=== PATIENT | female | born 1965 | race Caucasian/White ===

== ENCOUNTER → 2016-06-10 | Outpatient (CLI) | payer OTHER ==
[~2016-06-10] MED LIST: ADVIN50/60 INH; ALBU0.5N2 NEB; AMT50 PO; ASPI81TA28 PO; CALC500C3 PO; CALCIUM CITRATE PO; CHOL100010 PO; CYAN100020 PO; CYM/30 PO; CYMBALTA PO; FAMO40TA6 PO; MISC4CAP PO; MONT1TAB3 PO; POLY335019 PO; PRED-301 PO; PSYL0.524 PO; TRAM-10 PO
--- NOTE | 2016-06-13 14:55 | MAMMOGRAPHY REPORT ---
BILATERAL DIGITAL SCREENING MAMMOGRAM TOMOSYNTHESIS WITH CAD: 06/10/2016 CLINICAL HISTORY: Routine screening. Patient has no complaints. TECHNIQUE: Breast tomosynthesis in addition to standard 2D mammography was performed. Current study was also evaluated with a Computer Aided Detection (CAD) system. COMPARISON: Comparison is made to exams dated: 04/29/2015 mammogram - [facility] and 11/14/2012 mammogram - [facility]. BREAST COMPOSITION: There are scattered areas of fibroglandular density in both breasts. FINDINGS: No suspicious masses, calcifications, or areas of architectural distortion are noted in e ither breast. There has been no significant interval change compared to prior exams. Multiple small round/oval circumscribed masses are seen bilaterally, best seen on the tomosynthesis images, which are considered benign given the multiplicity and bilaterality and may represent cysts and/or lymph n odes. IMPRESSION: ACR BI-RADS CATEGORY 2: BENIGN There is no mammographic evidence of malignancy. A 1 year screening mammogram is recommended. The p atient will receive written notification of the results. Approximately 10% of breast cancers are not detected with mammography. A negative mammographic repor t should not delay biopsy if a clinically suggestive mass is present. Nellie Christopher M.D. ah/:06/10/2016 16:33:46 Policy Intern: Lorrie ALBERT)(Shawn), [facility] letter sent: Normal 1/2 BI-RADS Code: ACR BI-RADS Category 2: Benign
== END | disposition home or self-care (01) ==
LOC: C.MAMM 13:31
PROVIDERS: ATTEND Obstetrics & Gynecology
DX: Z12.31 Encounter for screening mammogram for malignant neoplasm of breast (principal)

== ENCOUNTER → 2016-07-21 | Day surgery (SDC) | payer OTHER ==
[2016-07-05 11:00] VITALS: Ht 156.8 cm; Wt 77.3 kg
[~2016-07-21] VITALS: Ht 156.8 cm; Wt 77.3 kg
[~2016-07-21] MED LIST changes: -CYMBALTA PO; +LIDOCAINE HCL 1% MPF 5 ML VIAL ONE; +SODIUM CHLORIDE 0.9% INJ 10 ML VIAL ONE
--- NOTE | 2016-07-21 13:53 | History & Physical Bridge - SC ---
H&P Re-Evaluation Bridge Note: I have examined the patient, reviewed the History & Physical and in the interval since the performance of the History & Physical I have noted the following changes of clinical significance: No changes noted
[2016-07-21 14:18] VITALS: BP 114/73; PULSE 74; TEMP 36.9; O2SAT 94
--- NOTE | 2016-07-21 14:26 | Discharge Instructions ---
Discharge Instructions Visit Reason for Visit: Lumbar Radiculopathy Discharge Discharge Diagnosis / Problem: right leg pain Discharge Goals Goal(s): Decrease discomfort, Improve function Activity Recommendations Activity Limitations: resume your previous activity Anesthesia . Post Anesthesia Instructions: If you have had General Anesthesia or IV Sedation: * Do not drive today. * Resume driving when surgeon permits. * Do not make important decisions or sign legal documents today. * Call surgeon for: 1. Temperature elevations greater than 101 degrees F. 2. Uncontrollable pain. 3. Excessive bleeding. 4. Persistent nausea and vomiting. 5. Medication intolerance (nausea, vomiting or rash). * For nausea and vomiting use only clear liquids such as: tea, soda, bouillon until nausea subsides, then gradually increase diet as tolerated. * If you have any concerns or questions, call your surgeon's office. If physician is unavailable and it is an emergency, call 911 or go to the nearest emergency room. . Diet Recommendations Recommended Home Diet: resume previous diet Procedures Procedures Performed: Caudal Epidural Steroid Injection Pending Studies Studies pending at discharge: no Medical Emergencies . Who to Call and When: Medical Emergencies: If at any time you feel your situation is an emergency, please call 911 immediately. . Non-Emergent Contact Non-Emergency issues call your: Specialist . . "Provider Documentation" section prepared by Otilio Vega.
--- NOTE | 2016-07-21 14:38 | OPERATIVE REPORT ---
DATE OF OPERATION: 07/21/2016 PREOPERATIVE DIAGNOSIS: Right lower extremity radiculopathy, history of Barrera lucien placement. POSTOPERATIVE DIAGNOSIS: Same. PROCEDURE: Caudal epidural steroid injection under fluoroscopic guidance. SURGEON: Dr. Otilio Vega. INDICATIONS: The patient is a 51-year-old white female who has chronic radicular problems down the lower extremities. She has responded favorably to caudal epidural injection. She receives them every 4 months ago with good relief of her symptoms that last upwards of 3+ months. She presents today for caudal epidural injection as the last injection has worn off. PHYSICAL EXAMINATION: Pleasant female seated comfortably. She has no focal weakness of her lower extremities. Negative seated straight leg raises, intact sensation distally. CONSENT: Verbal and written consent was obtained from the patient. Risks and benefits were reviewed. Risks include but are not limited to epidural abscess, epidural hematoma, allergic reaction. The patient wishes to proceed. PROCEDURE: The patient was taken back into the [facility] procedure room where she was maintained in a prone position. Backside was cleansed with Betadine x3 and a dry sterile dressing was applied. Fluoroscope was used to identify the sacral hiatus and overlying skin was anesthetized with 5 mL of lidocaine 1% with a 25 gauge 1.5-inch needle. A 25 gauge 3.5 inch spinal needle was then directed under fluoroscopic guidance into the sacral hiatus and into the sacral canal. It was advanced up to the S2 level. She then underwent injection after negative aspiration of 40 mg of Depo-Medrol and 5 mL of preservative free sodium chloride. Injection was well tolerated. DISPOSITION: 1. The patient is taken out into the discharge recovery area where she will be discharged home once discharge criteria have been met. 2. Follow up in the [facility] office in 2-4 weeks. I attest to the content of the Intraoperative Record and any orders documented therein. Any exceptio ns are noted below.
== END | disposition home or self-care (01) ==
LOC: X.SURG 13:11
PROVIDERS: ATTEND Physical Medicine & Rehabilitation
DX: M54.16 Radiculopathy, lumbar region (principal); Z98.890 Other specified postprocedural states

== ENCOUNTER → 2016-08-05 | Outpatient (CLI) | payer OTHER ==
[~2016-08-05] MED LIST changes: -LIDOCAINE HCL 1% MPF 5 ML VIAL ONE; -SODIUM CHLORIDE 0.9% INJ 10 ML VIAL ONE
== END | disposition home or self-care (01) ==
LOC: C.LAB1850 14:28
PROVIDERS: ATTEND Obstetrics & Gynecology
DX: N89.8 Other specified noninflammatory disorders of vagina (principal); N95.1 Menopausal and female climacteric states

== ENCOUNTER → 2016-09-02 | Outpatient (CLI) | payer OTHER ==
[~2016-09-02] MED LIST changes: +VNTHFA/IN INH
--- NOTE | 2016-09-06 08:47 | CODING QUERY MEDICAL NECESSITY ---
SUPPORTING DIAGNOSIS NEEDED A supporting diagnosis is required for the test/procedure performed on this patient in order for us to be reimbursed by the patient's insurance. Please provide a supporting diagnosis for the following test/procedure listed below next to the test name along with your signature. *If there is no additional diagnosis for this patient that would support the following test/procedure please document that below next to the test/procedure. Test(s)/Procedure(s) that require a supporting diagnosis: * DXA BONE DENSITY DIAGNOSIS: * DOS: 09/02/16 Provider Signature: Date: Thank you Amelia Salazar Health Information Management Once completed, please kindly fax back to [phone] For questions please call [phone]
== END | disposition home or self-care (01) ==
LOC: C.MAMM 13:01
PROVIDERS: ATTEND Family Medicine
DX: Z13.820 Encounter for screening for osteoporosis (principal)

== ENCOUNTER → 2016-10-10 | Outpatient (CLI) | payer OTHER | END | disposition home or self-care (01) | LOC: C.RDSM 12:50 | PROVIDERS: ATTEND Physical Medicine & Rehabilitation Sports Medicine | DX: M25.561 Pain in right knee (principal); M25.562 Pain in left knee ==

== ENCOUNTER → 2016-11-17 | Day surgery (SDC) | payer OTHER ==
[2016-11-10 10:43] VITALS: Ht 156.8 cm; Wt 77.3 kg
[~2016-11-17] VITALS: Ht 156.8 cm; Wt 77.3 kg
[~2016-11-17] MED LIST changes: -CALCIUM CITRATE PO; +LIDOCAINE HCL 1% MPF 5 ML VIAL ONE; -PRED-301 PO; +SODIUM CHLORIDE 0.9% INJ 10 ML VIAL ONE; -TRAM-10 PO
[2016-11-17 12:19] VITALS: TEMP 36.9
[2016-11-17 13:30] VITALS: BP 114/75; PULSE 69; O2SAT 98
--- NOTE | 2016-11-17 13:33 | Discharge Instructions ---
Discharge Instructions Date of Service Nov 17, 2016. Visit Reason for Visit: Lumbar Radiculopathy Discharge Discharge Diagnosis / Problem: bilateral leg pain Discharge Goals Goal(s): Decrease discomfort, Improve function Activity Recommendations Activity Limitations: resume your previous activity Anesthesia . Post Anesthesia Instructions: If you have had General Anesthesia or IV Sedation: * Do not drive today. * Resume driving when surgeon permits. * Do not make important decisions or sign legal documents today. * Call surgeon for: 1. Temperature elevations greater than 101 degrees F. 2. Uncontrollable pain. 3. Excessive bleeding. 4. Persistent nausea and vomiting. 5. Medication intolerance (nausea, vomiting or rash). * For nausea and vomiting use only clear liquids such as: tea, soda, bouillon until nausea subsides, then gradually increase diet as tolerated. * If you have any concerns or questions, call your surgeon's office. If physician is unavailable and it is an emergency, call 911 or go to the nearest emergency room. . Diet Recommendations Recommended Home Diet: resume previous diet Procedures Procedures Performed: Caudal Epidural Steroid Injection Pending Studies Studies pending at discharge: no Medical Emergencies . Who to Call and When: Medical Emergencies: If at any time you feel your situation is an emergency, please call 911 immediately. . Non-Emergent Contact Non-Emergency issues call your: Specialist . . "Provider Documentation" section prepared by Otilio Vega. .
--- NOTE | 2016-11-17 13:59 | OPERATIVE REPORT ---
DATE OF OPERATION: 11/17/2016 PREOPERATIVE DIAGNOSES: History of Barrera lucien placement multilevel fusion with degenerative disc changes, stenosis and bilateral lower extremity radiculopathies. POSTOPERATIVE DIAGNOSES: Same. PROCEDURE: Caudal epidural steroid injection under fluoroscopic guidance. INDICATIONS: The patient is a 51-year-old white female who gets caudal epidural injections and they have been very helpful. Her last injection was in July. The pain has returned and is problematic to her. She presents today for an injection to provide her with relief of bilateral radicular leg pain. PHYSICAL EXAMINATION: Pleasant female seated comfortably. She has well-healed incisions along the backside. There is soreness to palpation of her lower lumbar spine with sensitivity to palpation of the buttocks area, which is worse with forward flexion. She has normal lower extremity strength. Negative seated straight leg raises. CONSENT: Verbal and written consent was obtained from the patient. Risks and benefits were reviewed. Risks include but are not limited to epidural abscess and allergic reaction. The patient wishes to proceed. PROCEDURE IN DETAIL: The patient was taken back to the special procedures room of the [facility], where she was maintained in a prone position. Backside was cleansed with Betadine x3 and a dry sterile drape was covered. Fluoroscope was used to identify the sacral hiatus and the overlying skin was anesthetized with 4 mL of lidocaine 1% with a 25 gauge 1.5-inch needle. A 25 gauge 3.5-inch spinal needle was then directed easily into the sacral canal and advanced under lateral fluoroscopic guidance. She then underwent injection after negative aspiration of 40 mg of Depo-Medrol and 5 mL of preservative free sodium chloride. Injection was well tolerated. DISPOSITION: 1. The patient is taken out into the discharge recovery area where she will be discharged home once discharge criteria have been met. 2. Follow up in the [facility] office in 4 weeks' time. I attest to the content of the Intraoperative Record and any orders documented therein. Any exception s are noted below.
== END | disposition home or self-care (01) ==
LOC: X.SURG 12:10
PROVIDERS: ATTEND Physical Medicine & Rehabilitation
DX: M48.07 Spinal stenosis, lumbosacral region (principal); M51.17 Intervertebral disc disorders with radiculopathy, lumbosacral region; Z98.1 Arthrodesis status

== ENCOUNTER → 2017-02-15 | Outpatient (CLI) | payer OTHER ==
[~2017-02-15] MED LIST changes: -LIDOCAINE HCL 1% MPF 5 ML VIAL ONE; -SODIUM CHLORIDE 0.9% INJ 10 ML VIAL ONE; -VNTHFA/IN INH
--- NOTE | 2017-02-15 14:13 | DIAGNOSTIC IMAGING REPORT ---
LEFT WRIST MIN 3 VIEWS ROUTINE CLINICAL HISTORY: LEFT WRIST PAIN COMPARISON: None. DISCUSSION: No acute fractures are visualized. No erosive changes are visualized. IMPRESSION: 1. No acute fractures 2. No evidence of erosive disease Electronically signed by: Vern Wodos M.D. 02/15/2017 2:11 PM Dictated Date/Time: 02/15/2017 2:11 PM
== END | disposition home or self-care (01) ==
LOC: C.RDSM 13:53
PROVIDERS: ATTEND Physician Assistant
DX: M25.532 Pain in left wrist (principal)

== ENCOUNTER → 2017-05-22 | Outpatient (CLI) | payer OTHER ==
[~2017-05-22] MED LIST changes: -ALBU0.5N2 NEB; +VNTHFA/IN INH
== END | disposition home or self-care (01) ==
LOC: C.RDSM 10:32
PROVIDERS: ATTEND Physical Medicine & Rehabilitation Sports Medicine
DX: M17.0 Bilateral primary osteoarthritis of knee (principal)

== ENCOUNTER → 2017-08-10 | Outpatient (CLI) | payer OTHER ==
--- NOTE | 2017-08-10 15:07 | MAMMOGRAPHY REPORT ---
BILATERAL DIGITAL SCREENING MAMMOGRAM TOMOSYNTHESIS WITH CAD: 08/10/2017 CLINICAL HISTORY: Routine screening. Patient has no complaints. TECHNIQUE: Breast tomosynthesis in addition to standard 2D mammography was performed. Current study was also evaluated with a Computer Aided Detection (CAD) system. COMPARISON: Comparison is made to exams dated: 06/10/2016 mammogram, 04/29/2015 mammogram - [facility], and 11/14/2012 mammogram - Replaced by [facility]. BREAST COMPOSITION: There are scattered areas of fibroglandular density in both breasts. FINDINGS: No suspicious masses, calcifications, or areas of architectural distortion are noted in ei ther breast. There has been no significant interval change compared to prior exams. A linear scar ma rker denotes a scar on the right anterior breast. IMPRESSION: ACR BI-RADS CATEGORY 2: BENIGN There is no mammographic evidence of malignancy. A 1 year screening mammogram is recommended. The pa tient will receive written notification of the results. Approximately 10% of breast cancers are not detected with mammography. A negative mammographic report should not delay biopsy if a clinically suggestive mass is present. Nellie Christopher M.D. /:08/10/2017 13:23:33 Education Spec: Dixie Glover, [facility] letter sent: Normal 1/2 BI-RADS Code: ACR BI-RADS Category 2: Benign
== END | disposition home or self-care (01) ==
LOC: C.MAMM 11:32
PROVIDERS: ATTEND Obstetrics & Gynecology
DX: Z12.31 Encounter for screening mammogram for malignant neoplasm of breast (principal)

== ENCOUNTER → 2017-10-05 | Day surgery (SDC) | payer OTHER ==
[2017-09-26 10:07] VITALS: Ht 156.2 cm; Wt 81.8 kg
[~2017-10-05] VITALS: Ht 156.2 cm; Wt 81.8 kg
[~2017-10-05] MED LIST changes: +ACET-1256 PO; -CHOL100010 PO; -CYM/30 PO; -FAMO40TA6 PO; +GABA100C13 PO; +LIDOCAINE HCL 1% MPF 5 ML VIAL ONE; +MULT-506 PO; +NABU750T PO; +PANT40TA PO; +SODIUM CHLORIDE 0.9% INJ 10 ML VIAL ONE
--- NOTE | 2017-10-05 13:44 | Discharge Instructions ---
Discharge Instructions Date of Service October 05, 2017. Visit Reason for Visit: Lumbar Radiculopathy Discharge Discharge Diagnosis / Problem: leg pain Discharge Goals Goal(s): Decrease discomfort, Improve function Activity Recommendations Activity Limitations: resume your previous activity Anesthesia . Post Anesthesia Instructions: If you have had General Anesthesia or IV Sedation: * Do not drive today. * Resume driving when surgeon permits. * Do not make important decisions or sign legal documents today. * Call surgeon for: 1. Temperature elevations greater than 101 degrees F. 2. Uncontrollable pain. 3. Excessive bleeding. 4. Persistent nausea and vomiting. 5. Medication intolerance (nausea, vomiting or rash). * For nausea and vomiting use only clear liquids such as: tea, soda, bouillon until nausea subsides, then gradually increase diet as tolerated. * If you have any concerns or questions, call your surgeon's office. If physician is unavailable and it is an emergency, call 911 or go to the nearest emergency room. . Diet Recommendations Recommended Home Diet: resume previous diet Procedures Procedures Performed: CADUAL EPIDURAL STEROID INJECTION Pending Studies Studies pending at discharge: no Medical Emergencies . Who to Call and When: Medical Emergencies: If at any time you feel your situation is an emergency, please call 911 immediately. . Non-Emergent Contact Non-Emergency issues call your: Specialist . . "Provider Documentation" section prepared by Otilio Vega. .
[2017-10-05 13:46] VITALS: TEMP 36.5
[2017-10-05 14:10] VITALS: BP 119/80; PULSE 68; O2SAT 97
--- NOTE | 2017-10-05 14:11 | [facility] Post Operative Brief Note ---
Immediate Operative Summary Operative Date October 05, 2017. Pre-Operative Diagnosis RADICULOPATHY OF THE LUMBAR REGION Post-Operative Diagnosis RADICULOPATHY OF THE LUMBAR REGION Procedure(s) Performed CADUAL EPIDURAL STEROID INJECTION Surgeon DR. Anila COLLINS Otolaryngology Nurse Surgeon(s) None Estimated Blood Loss NONE Findings Consistent with Post-Op Diagnosis Specimens NA Drains None Anesthesia Type Local Complication(s) none Disposition Disposition:
--- NOTE | 2017-10-05 14:23 | OPERATIVE REPORT ---
DATE OF OPERATION: 10/05/2017 PREOPERATIVE DIAGNOSES: 1. Lumbar disc disease L5-S1. 2. History of a Barrera lucien placement with right lower extremity radiculopathy. POSTOPERATIVE DIAGNOSES: 1. Lumbar disc disease L5-S1. 2. History of a Barrera lucien placement with right lower extremity radiculopathy. PROCEDURE: Caudal epidural steroid injection under fluoroscopic guidance. INDICATIONS: The patient is a 52-year-old white female who has received caudal epidural injections typically 3 times a year for the better part of the last 7+ years with great results in controlling pain for a period of about 3 months or more. She presents today for caudal epidural injection as she is having increasing pain down the leg. PHYSICAL EXAMINATION: GENERAL: Pleasant female, seated comfortably. MUSCULOSKELETAL: She has tenderness to palpation of the lower lumbar spine, well-healed incision in place and she has slight L4 dermatomal deficit in the left lower extremity compared to the right. CONSENT: Verbal and written consent was obtained from the patient. Risks and benefits were reviewed. Risks include but are not limited to epidural abscess and allergic reaction. Patient wishes to proceed. PROCEDURE: Patient was taken back to the special procedures room of the [facility] where she was maintained in a prone position. Backside was cleansed with Betadine x3 and a dry sterile dressing was applied. Fluoroscope was used to identify the sacral hiatus from the lateral view and the overlying skin was anesthetized with 4 mL of lidocaine 1% with 25 gauge 1.5-inch needle. A 25 gauge 3.5 inch spinal needle was then directed into the canal and advanced under lateral fluoroscopic guidance. She then underwent injection after negative aspiration of 40 mg of Depo-Medrol and 4 mL of preservative-free sodium chloride. Injection was well tolerated. DISPOSITION: 1. Patient is taken out into the discharge recovery area where she will be discharged home once discharge criteria are met. 2. Follow up in the [facility] office in 4 weeks' time. I attest to the content of the Intraoperative Record and any orders documented therein. Any exception s are noted below.
== END | disposition home or self-care (01) ==
LOC: X.SURG 12:42
PROVIDERS: ATTEND Physical Medicine & Rehabilitation
DX: M51.17 Intervertebral disc disorders with radiculopathy, lumbosacral region (principal); J45.909 Unspecified asthma, uncomplicated; K21.9 Gastro-esophageal reflux disease without esophagitis; E66.9 Obesity, unspecified

== ENCOUNTER 2025-02-12 06:33 | Observation (INO) ==
--- NOTE | 2024-12-13 15:54 | PAT Medication Instructions ---
Medication Instructions Date of Service December 13, 2024 Home Medications fluticasone 500 mcg-salmeterol 50 mcg/dose blistr powdr for inhalation (Advair Diskus) 1 puff inhalation BID Bifidobacterium infantis 4 mg capsule (Align (B.infantis)) 4 mg PO QPM acetaminophen 500 mg tablet (Tylenol Extra Strength) 1,000 mg PO UD PRN Pain albuterol sulfate 90 mcg/actuation aerosol inhaler (Ventolin HFA) 2 puff inhalation QID PRN Shortness Of Breath Or Wheezing multivitamin 1 tab PO QAM polyethylene glycol 3350 17 gram oral powder packet (Miralax) 17 g PO QPM psyllium husk 3.4 gram/5.4 gram oral powder (Metamucil) 4 tbsp PO HS duloxetine 60 mg capsule,delayed release (Cymbalta) 60 mg PO QAM erythromycin with ethanol 2 % topical solution 1 applic topical UD PRN scalp hydrocortisone 2.5 % topical cream with perineal applicator (Proctosol HC) 1 applic WA UD PRN Hemorrhoids esomeprazole magnesium 40 mg capsule,delayed release (Nexium) 40 mg PO QAM cholecalciferol (vitamin D3) 25 mcg (1,000 unit) tablet (Vitamin D3) 25 mcg PO QAM ondansetron 4 mg disintegrating tablet 4 mg PO QAM Nausea And Vomiting famotidine 40 mg tablet (Pepcid) 40 mg PO HS Acid Reflux Keto Gummy 2 tab PO DAILY bergamot extract 500 mg capsule (Story Bergamot) 500 mg PO BID camphor-menthol 0.2 %-3.5 % topical gel 1 applic topical BID PRN Pain losartan 25 mg tablet 25 mg PO QAM bupropion HCl 150 mg 24 hr tablet, extended release 150 mg PO QAM bupropion HCl 300 mg 24 hr tablet, extended release 300 mg PO QAM gabapentin 300 mg capsule (Neurontin) 300 mg PO BID multivitamin,Ca,mineral-folic acid-herbal no.157 400 mcg tablet 3 tab PO DAILY omega 6-bce-tgs-fish oil 1,200 mg (144 mg-216 mg) capsule (Fish Oil) 1 cap PO DAILY STOP taking 2 weeks before surgery Keto Gummy 2 tab PO DAILY bergamot extract 500 mg capsule (Story Bergamot) 500 mg PO BID multivitamin,Ca,mineral-folic acid-herbal no.157 400 mcg tablet 3 tab PO DAILY omega 8-bsp-sfy-fish oil 1,200 mg (144 mg-216 mg) capsule (Fish Oil) 1 cap PO DAILY STOP taking 24 hours before surgery erythromycin with ethanol 2 % topical solution 1 applic topical UD PRN scalp hydrocortisone 2.5 % topical cream with perineal applicator (Proctosol HC) 1 applic WA UD PRN Hemorrhoids camphor-menthol 0.2 %-3.5 % topical gel 1 applic topical BID PRN Pain DO NOT take the morning of surgery multivitamin 1 tab PO QAM cholecalciferol (vitamin D3) 25 mcg (1,000 unit) tablet (Vitamin D3) 25 mcg PO QAM losartan 25 mg tablet 25 mg PO QAM Take morning of surgery With a small sip of water, OTHERWISE NOTHING TO EAT OR DRINK AFTER MIDNIGHT: fluticasone 500 mcg-salmeterol 50 mcg/dose blistr powdr for inhalation (Advair Diskus) 1 puff inhalation BID acetaminophen 500 mg tablet (Tylenol Extra Strength) 1,000 mg PO UD PRN Pain (if needed) albuterol sulfate 90 mcg/actuation aerosol inhaler (Ventolin HFA) 2 puff inhalation QID PRN Shortness Of Breath Or Wheezing (use if needed; please bring with you to hospital day of surgery if possible) duloxetine 60 mg capsule,delayed release (Cymbalta) 60 mg PO QAM esomeprazole magnesium 40 mg capsule,delayed release (Nexium) 40 mg PO QAM ondansetron 4 mg disintegrating tablet 4 mg PO QAM Nausea And Vomiting bupropion HCl 150 mg 24 hr tablet, extended release 150 mg PO QAM bupropion HCl 300 mg 24 hr tablet, extended release 300 mg PO QAM gabapentin 300 mg capsule (Neurontin) 300 mg PO BID Take evening before surgery fluticasone 500 mcg-salmeterol 50 mcg/dose blistr powdr for inhalation (Advair Diskus) 1 puff inhalation BID Bifidobacterium infantis 4 mg capsule (Align (B.infantis)) 4 mg PO QPM acetaminophen 500 mg tablet (Tylenol Extra Strength) 1,000 mg PO UD PRN Pain (if needed) albuterol sulfate 90 mcg/actuation aerosol inhaler (Ventolin HFA) 2 puff inhalation QID PRN Shortness Of Breath Or Wheezing (if needed) polyethylene glycol 3350 17 gram oral powder packet (Miralax) 17 g PO QPM psyllium husk 3.4 gram/5.4 gram oral powder (Metamucil) 4 tbsp PO HS famotidine 40 mg tablet (Pepcid) 40 mg PO HS Acid Reflux gabapentin 300 mg capsule (Neurontin) 300 mg PO BID Other Notes If you have any questions please call us at [phone] or [phone] or [phone] or [phone]
--- NOTE | 2024-12-20 15:05 | Anesthesiology Consultation ---
Date of Service December 20, 2024 Assessment & Plan (1) Encounter for pre-operative examination: - Infectious disease screening: Per assessment on 12/20/24- No known recent infectious disease contacts or current infectious disease symptoms. - Outpatient joint assessment: Pt currently scheduled for inpatient pathway. If surgeon requests review for outpatient joint pathway, patient is not recommended candidate for outpatient joint program from anesthesia standpoint based on available information. - S/P Right Knee Arthroscopy, Partial Lateral and Medial Meniscectomies (12/13/22): LMA#4,a traumatic at [facility] [place]. No issues noted per post-op anesthesia progress note. - PCP visit (12/20/24): "HTN well controlled.. HLD well controlled.. Patient medically optimized for planned procedure.. Cat bite.. Topical mupirocin TID for two days. If not improving prescription for Augmentin BID x 7 days provided to start after treating with mupirocin. RTO if not improving or worse." Patient advised to contact PAT/surgeon if development of infectious-related symptoms prior to surgery. - Awaiting surveillance EGD report ([facility]/Dr. Montana, scheduled 12/25). Patient otherwise acceptable risk for surgery. Chart Review Chart Review: Patient seen in Pre Admission Testing Teaching & Discussion Pre-Anesthesia Teaching/Discussion Notes: Instructed NPO after midnight before surgery,except medications with 15 cc of water. Medication instructions provided according to the PAT guidelines. History Surgery Operation Date: 02/12/25 07:00 Proposed Procedures p Right Total Knee Arthroplasty - Reginaldo Pereira MD Height/Weight Height: 5 ft 1 in Weight: 83.4 kg Allergies Allergy/AdvReac Type Severity Reaction Status Date / Time lisinopril AdvReac Intermediate Cold-like Verified 12/13/24 12:58 symptoms, sneezing Qedzvyz-SIV-CfW Reductase AdvReac Intermediate Cold-like Verified 12/13/24 12:58 Inhibitor symptoms "which lead to pneumonia" tramadol AdvReac Mild Headaches Verified 12/13/24 12:58 Medications Home Medications Medication Instructions Recorded Confirmed Last Taken fluticasone 500 mcg-salmeterol 50 1 puff inhalation BID 30 days #1 04/09/15 12/13/24 09/15/21 mcg/dose blistr powdr for inhaler inhalation (Advair Diskus) Bifidobacterium infantis 4 mg 4 mg PO QPM 02/01/18 12/13/24 09/15/21 capsule (Align (B.infantis)) acetaminophen 500 mg tablet 1,000 mg PO UD PRN Pain 02/01/18 12/13/24 12/13/22 06:30 (Tylenol Extra Strength) albuterol sulfate 90 mcg/actuation 2 puff inhalation QID PRN 02/01/18 12/13/24 03/28/21 aerosol inhaler (Ventolin HFA) Shortness Of Breath Or Wheezing multivitamin 1 tab PO QAM 02/01/18 12/13/24 09/15/21 polyethylene glycol 3350 17 gram 17 g PO QPM 02/01/18 12/13/24 09/15/21 oral powder packet (Miralax) psyllium husk 3.4 gram/5.4 gram 4 tbsp PO HS 02/01/18 12/13/24 03/28/21 oral powder (Metamucil) duloxetine 60 mg capsule,delayed 60 mg PO QAM 06/06/18 12/13/24 12/13/22 06:30 release (Cymbalta) erythromycin with ethanol 2 % 1 applic topical UD PRN scalp 08/28/18 12/13/24 topical solution hydrocortisone 2.5 % topical cream 1 applic NM UD PRN Hemorrhoids 08/28/18 12/13/24 03/28/21 with perineal applicator (Proctosol HC) esomeprazole magnesium 40 mg 40 mg PO QAM 01/14/22 12/13/24 12/13/22 06:30 capsule,delayed release (Nexium) cholecalciferol (vitamin D3) 25 25 mcg PO QAM 05/25/22 12/13/24 Unknown mcg (1,000 unit) tablet (Vitamin D3) ondansetron 4 mg disintegrating 4 mg PO QAM Nausea And Vomiting 05/25/22 12/13/24 05/27/22 tablet famotidine 40 mg tablet (Pepcid) 40 mg PO HS Acid Reflux 08/09/22 12/13/24 Unknown Keto Gummy 2 tab PO DAILY 12/08/22 12/13/24 Unknown bergamot extract 500 mg capsule 500 mg PO BID 12/08/22 12/13/24 Unknown (Ravalli Bergamot) camphor-menthol 0.2 %-3.5 % 1 applic topical BID PRN Pain 12/08/22 12/13/24 Unknown topical gel losartan 25 mg tablet 25 mg PO QAM 01/15/24 12/13/24 Unknown bupropion HCl 150 mg 24 hr tablet, 150 mg PO QAM 12/13/24 12/13/24 Unknown extended release bupropion HCl 300 mg 24 hr tablet, 300 mg PO QAM 12/13/24 12/13/24 Unknown extended release gabapentin 300 mg capsule 300 mg PO BID 12/13/24 12/13/24 Unknown (Neurontin) multivitamin,Ca,mineral-folic 3 tab PO DAILY 12/13/24 12/13/24 Unknown acid-herbal no.157 400 mcg tablet omega 1-gvy-lpg-fish oil 1,200 mg 1 cap PO DAILY 12/13/24 12/13/24 Unknown (144 mg-216 mg) capsule (Fish Oil) Past Medical History Medical History Anxiety Asthma Escalante esophagus Upcoming EGD scheduled 12/25 ([facility]; Dr. Montana) for routine surveillance per patient Bruising ? Myocardial contusion () s/p unremarkable cardiac evaluation/monitoring per patient; since discharged by cardio per patient Cervical radiculopathy, chronic Chronic back pain Diverticular disease Incidental Finding on colonoscopy Family history of lupus anticoagulant disorder Father- positive lupus anticoagulant disorder Patient- Per [facility] records, patient has personal "history of positive lupus anticoagulant antibody; testing repeated twice and came back negative." Fibromyalgia Gait instability Uses otero GERD (gastroesophageal reflux disease) H/O gastric ulcer No current/recent issues History of blood transfusion 2005 History of COVID-19 x2 (most recent 2021) Mild symptoms, resolved HTN (hypertension) Irritable bowel syndrome Migraines Occasional Nerve damage Bilateral "From my hips to my feet" per patient Osteoarthritis Scoliosis MAGGIE (stress urinary incontinence, female) Systemic lupus erythematosus Previously followed with Dr. Arroyo Vertigo Inner ear problem/balance issues - Cane Exercise / Class Metabolic Activity II 4-5 Yardwork/Stairs/Walk up hill Past Family History Family History Mother Family history of diabetes mellitus Family history of esophageal cancer Other No family history of adverse response to anesthesia Past Surgical History Surgical History H/O bilateral salpingectomy History of arthroscopy of hip R/L History of arthroscopy of right knee 2022 History of arthroscopy of right shoulder x2 History of back surgery Rods for scoliosis "all levels" History of bunionectomy of left great toe History of bunionectomy of right great toe History of cholecystectomy 08/2022, [facility] History of colonoscopy History of endoscopy History of herniorrhaphy x2 History of hysterectomy History of laparoscopy History of nasal septoplasty History of tonsillectomy History of wisdom tooth extraction Nausea and vomiting after administration of anesthetic agent S/P epidural steroid injection multiple Past Anesthesia History No Hx of Anesthesia Complications and No Family Hx of Anesthesia Complications History of PONV History of PONV and Hx of Motion Sickness Social History Smoking Status: Former smoker tobacco type: cigarettes Do You Dip or Chew Tobacco: No Smoking End Date: Quit most recently 1998 Hx Alcohol Use: Yes Alcohol type: beer alcohol intake frequency: a few times a week Hx Substance Use: Yes substance use type: marijuana (Occasional (inhaled)) Review of Systems Patient denies chest pain, shortness of breath, dyspnea on exertion, fever, chills, cough, wheezing, palpitations. Physical Exam Vital Signs BP 112/73 P 75 TEMP 98.4 SP02 95%RA RESP 16 Physical Full cervical extension range of motion. Full TMJ range of motion. TMD > 3.5 finger breaths Mallampati Score I Dentition: + implants, missing molars Lungs: clear throughout to auscultation Cardiac: regular rate and rhythm, no murmurs noted Spine: normal Carotid arteries: negative bruit Extremities: no LE edema Lab Results Anesthesia Preop Results Results Anesthesia Widget: WBC 5.15 K/ul (4.8-10.8) 12/20/24 Hgb 12.4 g/dl (12.0-16.0) 12/20/24 Hct 36.0 % (37.0-47.0) L 12/20/24 Plt 234 K/uL (130-400) 12/20/24 Na 137 mmol/L (136-145) 12/20/24 K 3.8 mmol/L (3.5-5.1) 12/20/24 Cl 102 mmol/L (98-107) 12/20/24 CO2 28 mmol/L (21-32) 12/20/24 BUN 22 mg/dl (6-23) 12/20/24 Creat 0.83 mg/dl (0.6-1.2) 12/20/24 Glucose Level 132 mg/dl (70-99(Fasting)) H 12/20/24 PT 10.3 Seconds (9.0-12.0) 12/20/24 PTT 30 Seconds (21-31) 12/20/24 INR 0.9 (0.9-1.1) 12/20/24 Urine Color Yellow 12/20/24 Urine Appearance Clear (Clear) 12/20/24 Urine pH 5.5 (4.5-7.5) 12/20/24 Urine Specific [place] 1.009 (1.000-1.030) 12/20/24 Urine Protein Negative (Negative) 12/20/24 Urine Glucose (UA) Negative (Negative) 12/20/24 Urine Ketones Negative (Negative) 12/20/24 Urine Blood Negative (Negative) 12/20/24 Urine Nitrite Negative (Negative) 12/20/24 Urine Bilirubin Negative (Negative) 12/20/24 Urine Urobilinogen Negative (Negative) 12/20/24 Urine Leukocyte Esterase Negative (Negative) 12/20/24 Blood Type O Negative 12/20/24 Antibody Screen NEGATIVE 12/20/24 Testing Electrocardiogram Date: 12/20/24 NSR at 75bpm. "Normal ECG" Chest X-Ray Date: 12/20/24 IMPRESSION: 1. No acute pleuropulmonary abnormality detected. 2. Metallic instrumentation noted in the thoracic and lumbar spine.
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
--- NOTE | 2025-02-12 05:27 | History & Physical Bridge Note ---
Date of Service February 12, 2025 History & Physical Bridge Note I have examined the patient, reviewed the History & Physical and in the interval since the performance of the History & Physical I have noted the following changes of clinical significance:consent and site verified.riskd of stiffness,infection,dvt/pe and revision identified. no changes noted
[~2025-02-12 06:33] MED LIST changes: -ACET-1256 PO; -ADVIN50/60 INH; -AMT50 PO; -ASPI81TA28 PO; +BUPIVACAINE 0.5 % 5 MG/1 ML PF 10ML VIAL ONE; -CALC500C3 PO; -CYAN100020 PO; +EPINEPHrine INJ 1 MG/ML AMP ONE; -GABA100C13 PO; -LIDOCAINE HCL 1% MPF 5 ML VIAL ONE; -MISC4CAP PO; -MONT1TAB3 PO; -MULT-506 PO; -NABU750T PO; -PANT40TA PO; -POLY335019 PO; -PSYL0.524 PO; +ROPIVACAINE 0.5% 5 MG/ML 30 ML VIAL ONE; +ROPIVACAINE 0.5% HCL/PF 246 MG, Ketorolac (*for OR use only*) 30 MG, EPINEPHrine 30MG/3... INFIL SCH; -SODIUM CHLORIDE 0.9% INJ 10 ML VIAL ONE; -VNTHFA/IN INH
[2025-02-12] MEDS: LR 60ML/HR IV SCH (07:19)
[2025-02-12] MEDS: LR 500ML BOLUS, THEN 15ML/HR IV SCH (07:19)
[2025-02-12] MEDS ORDERED: MIDAZOLAM HCL 1 MG/ML 2ML VIAL ONE (08:38)
[2025-02-12] MEDS ORDERED: ROCURONIUM BROMIDE 10 MG/ML 5 ML VIAL IV ONE (08:38)
[2025-02-12] MEDS ORDERED: PROPOFOL IV EMULSION 10 MG/ML 20 ML VIAL IV ONE ×3 (08:38→10:41)
[2025-02-12] MEDS: TRANEXAMIC ACID 1,000 MG **IV Pre-op IV SCH (09:08)
[2025-02-12] MEDS ORDERED: DEXAMETHASONE SOD INJ 4 MG/ML VIAL ONE (09:44)
[2025-02-12] MEDS ORDERED: ONDANSETRON INJ 2 MG/ML 2 ML VIAL ONE (09:44)
[2025-02-12] MEDS: ORTHO JOINT ANESTHETIC ONE (09:59)
[2025-02-12] MEDS ORDERED: GLYCOPYRROLATE 0.2 MG/ML VIAL ONE (10:11)
[2025-02-12] MEDS ORDERED: ePHEDrine sulfate 50 MG/5 ML SYR ONE (10:11)
[2025-02-12] MEDS: ROPIV 0.5% 246mg, Ketorolac 30mg, EPINEPHrine 0.5mg in NSS INFIL SCH (10:35)
--- NOTE | 2025-02-12 11:07 | Post Operative Brief Note ---
Immediate Post Op Note Date of Surgery February 12, 2025 Pre & Post Diagnosis Operation Date: 02/12/25 08:50 <No data on this case meets the specified criteria> Osteoarthritis right knee pre and postop diagnosis same I identified the patient and participated in the time-out.: Yes Procedure Operation Date: 02/12/25 08:50 <No data on this case meets the specified criteria> Cemented right total knee replacement Surgeon Reginaldo Pereira MD Structural Metal Fabricator Apprentice [facility] no resident or fellow available Estimated Blood Loss 100 Findings Consistent with Post-Op Diagnosis Osteoarthritis grade 4 medial compartment grade 4 patella- femoral joint Fluids 1400 cc Complications None
--- NOTE | 2025-02-12 11:10 | Operative Report ---
Post Operative Report Pre & Post Diagnosis Operation Date: 02/12/25 08:50 <No data on this case meets the specified criteria> Osteoarthritis right knee. Postop diagnosis same I identified the patient and participated in the time-out.: Yes Procedure Operation Date: 02/12/25 08:50 <No data on this case meets the specified criteria> Cemented right total knee replacement Surgeon Reginaldo Pereira MD School Admissions Representative [place] no resident or fellow available Estimated Blood Loss 100 Findings Consistent with Post-Op Diagnosis Grade 4 disease medial compartment tibia femur bipolar and patellofemoral joint Fluids 1400 cc Specimens Bone pathology Drains None Complications None Indications Severe pain failed conservative management for years with injections Description of Procedure After the patient was brought identified site verified consent verified antibiotics confirmed as being given the right lower extremity was prepped and draped as routine fashion. Tourniquet was inflated to 275 mmHg exsanguination limb menorrhagia band for total of 52 minutes. Midline exposure utilized parapatellar thyrotomy performed synovectomy completed osteophytes resected. Distal femur entered cruciates resected. There was grade 4 disease throughout the entire medial compartment and patellofemoral joint lateral compartment was relatively well-preserved. Distal femur was resected 10 mm proximal tibia 4 mm there was excellent extension gap the tibia was sized with 3 the femur to a 4 cutting block was applied to the distal femur and anterior posterior condylar chamfer cuts made flexion gap was checked it was excellent. The box cut was made a size 4 fit well the tibia was broached and reamed to a size 3 and with a 7 mm spacer everything was nice and stable the patella tracked well. Patella was everted resecting about 8 mm leaving 14 mm and a 32 trial button was seated after holes were made and tracked well. Ortho mix was injected about the knee all trial elements were then removed wound was soaked in Betadine for 3 minutes irrigated and the permanent cemented into position. Tibia femur patella and out of order. After 12 minutes tourniquet was deflated minor bleeding points controlled electrocautery and extremity dose of TXA was given. Once the cement was fairly cured the trial spacer was removed the knee was irrigated 1 final time with Pulsavac Betadine the permanent liner seated the knee reduced and closed at 40 degrees of flexion with #2 Vicryl 2-0 Vicryl and standstill clips appropriate dressing applied including a rubber Shaikh cotton dressing. EBL was roughly 100 cc during the case crystalloid 1400 cc bone pathology pending DVT prophylaxis to begin tomorrow. Summary of implants size 5 right narrow femur size 3 rotating platform tray size 35 patella size 5 x 7 mm probe rotating platform insert posterior cruciate substituting all DePuy J[employer]J Synthes ATT UNE total knee replacement . I attest to the content of the Intraoperative Record and any orders documented therein. Any exceptions are noted below.
--- NOTE | 2025-02-12 11:13 | Orthopedic Progress Note ---
Date of Service February 12, 2025 Orthopedic Progress Note Patient underwent right total knee replacement cemented. Tolerated well. Denies chest pain shortness of breath fever chills nausea vomit headache. Vital signs are stable she is afebrile. Neurovascular check limited by awakening from anesthesia. X-ray pending. Attempt to contact son was made left a voicemail he did not answer his phone.
--- NOTE | 2025-02-12 11:14 | Discharge Summary ---
Date of Service February 13, 2025 Admission HPI Per Admitting Provider History of Present Illness (including history relevant to procedure): This 59-year-old female presents to the clinic today for preoperative history and physical. Patient complains of bilateral knee pain that has worsened since a several months ago. She states the pain in her right knee is much greater than that of her left. Patient states she has chronic arthritis in both knees and has received hyaluronic acid injections multiple times in the past. She states the last series seems failure much more less effective than the previous ones. She states she does not normal exercise regimen but is very difficult because of the pain she has in her knees. Due to her activity limitations and failed conservative management patient is elected proceed with surgical intervention. Review Of Systems: A 12 point review of systems is performed and is unremarkable except for those things stated in the HPI past medical history. Past Medical History: Problems: Cat bite Mixed incontinence urge and stress Osteoarthritis of left wrist Ankle pain, left Hyperlipidemia Essential hypertension Escalante's esophagus Family history of colonic polyps Constipation Chronic GERD Anterior tibial tendonitis Foot pain, left Lupus arthritis Arthritis of left midfoot Obesity Fibromyalgia Lateral epicondylitis of elbow Epicondylitis, lateral, left Transaminitis Malaise and fatigue Chronic pain syndrome Asthma Greater trochanteric pain syndrome of both lower extremities Complicated varicose veins Bilateral primary osteoarthritis of knee Popliteal cyst Swelling of calf Pain of right calf Primary osteoarthritis of right knee Marital problem involving divorce Chronic nausea LBP - Low back pain Tendinopathy of left gluteus medius H/O total hysterectomy Scapholunate instability, of left wrist Left wrist pain Right hip pain Carpal tunnel syndrome, left Generalized anxiety disorder Scoliosis Tibial mass Hearing loss on right History of lumbar fusion Subacromial impingement DJD (degenerative joint disease) of knee Irritable bowel Stress due to family tension Hot flashes due to menopause Ganglion cyst of wrist Right cervical radiculopathy Cervical spondylosis Vaginal dryness Tendinopathy of right gluteus medius Degenerative joint disease (DJD) of hip Weight disorder Ovarian cyst Mixed incontinence Lupus Tarsal tunnel syndrome Lumbar radiculopathy Procedure History Procedure Procedure Date Comments laproscopy - X2 hysterectomy - emergency scoliosis tonsillectomy nasal right hip stomach epicural injection Repair of hip - Left Hip Arthroscopy of knee with medial and lateral meniscus repair - Findings: Right knee. Consistent with Post -op diagnosisGrade 2 changes medial compartment grade 2 changes patellofemoral joint grade 1 changes lateral compartment chondrocalciosis diffuse root tear degenerative medial meniscus free margin central third degenerative tear lateral meniscus. Arthroscopy of knee with lateral meniscectomy 12/13/2022 - Arthroscopy of knee with lateral meniscectomy and anterior debridment MRI of right knee 11/29/2022 - Impresssion: 1. Horizontal tears involving the medial and latera menisci. 2. Moderate sized joint effusion. 3. Orosco's cyst. Cholecystectomy 09/27/2022 - Pathology: Gallbladder and contents- Chronic cholecystitis and cholelithiasis. Medical records review 08/09/2022 - [facility] gen surg OV--GB surgery planned after urology sees patient. HEPATOBIL SYST IMAGE W/DRUG 07/20/2022 - 1) No evidence fo acute cholecystitis or biliary obstructin2) Diminished ejection fraction may reflect chronic cholecystitis. Correlate clinically GASTRIC EMPTYING IMAG STUDY 07/11/2022 - Impression: Normal gastric emptying study. Ultrasound scan of upper abdomen 07/08/2022 - Impression:1. No acute or suspicious process identified.2. Cholelithiasis without evidence of acute cholecystitis. Esophagogastroduodenoscopy 12/29/2021 - EGD short segment Barretts bx, mid esoph nl bx, antral erosion bx, 2nd duod nl bx, Lumbar epidural steroid injection 09/15/2021 Chest X-ray 06/30/2021 - Impression: 1. Mild subsegmental atelectasis or infiltrate within the lung bases has developed since previous study. Evaluation is otherwise unchanged. Colonoscopy 04/07/2021 - COLO to cecum, 3 rectal polyps 2 mm CF, hemorrhoids, left colon tics Mammography 11/25/2020 - There is no mammographic evidence of malignancy. A 1 year screening mammogram is recommended. Caudal epidural steroid injection under fluoroscopic guidance 06/10/2020 - Preoperative diagnoses: History of Barrera rods placement, back surgery with chronic right L5 radiculopathy. Fusion of lumbar spine 11/18/2019 MRI of brain with contrast and without contrast 10/29/2019 - 1. No acute intracranial findings.2. No evidence of intracranial mass.3. No evidence of acute or subacute infarction. Caudal epidural steroid injection 07/22/2019 - Pre-Op Diagnosis:Lumbar Radiculopathy Examining eye 11/26/2018 Arthroscopy of shoulder 09/18/2018 - right shoulder with rotator cuff MRI of right shoulder w/o contrast 05/15/2018 - Impression: 1. Propable supraspinatus tendinosis without visible tear. 2. Moderate acromioclavicular degeneration. Epidural steroid injection 02/07/2018 caudal epidural steroid injection under fluroscopic guidance 10/05/2017 Esophagogastroduodenoscopy 09/25/2017 - distal esophagus biopsied - EGD grade C erosive esophagitis Pathology report 09/25/2017 - Diagnosis:1. Esophagus, gastro- esophageal junction biopsy- Active esophagitis with increased intraepithelial eosinophils ( up to 18?HPF) - No glandular mucosa identified Mammogram 08/10/2017 - Impression: ACR BI-RADS CATEGORY 2: BENIGNThere is no mammographic evidence of [id number] F/U screening mammogram is recommended Epidural steroid injection 11/17/2016 - Injection was well tolerated. - injection well tolerated Mammogram 06/10/2016 - There is no mammographic evidence of malignancy, a 1 year screening mammogram is recommended Cervical spine X-ray 05/26/2016 - No cervical spine fracture. Moderate multilevel degenerative disc disease at C4 to C5 C5-C6 AND C6-C7 Colonoscopy 01/07/2016 - COLO to cecum, diverticulosis, hemorrhoids, repeat colo 5 years. MRI of brain and brain stem 05/20/2015 - Unremarkabl MRI of the brain Mammogram 04/29/2015 - ARC Bi-lateral category0: incomplete evaluation; need additional imaging evaluation.The nodular asymmetry in he left breast needs additional evaluation. Need mammogram from [place], if this is unable to be obtained, additional workup is needed Mammogram 04/29/2015 - The nodular asymmetry in the latral left breast needs additional evaluation. The outside 2012 mammogram from [place] will be re-requested for the lefft CC projection. If this unable to be obtained, additional workup is needed. Please see above discussion. Esophagogastroduodenoscopy 03/17/2015 - path antrum pos H.pylori and gasttiis, EG inflammation - EGD minimal antral erythema bx, irregular Z line but no inflammation--GE jxn bx Ultrasound scan of thyroid 02/03/2015 - 1.1 cm left thyroid nodule Epidural steroid injection 12/11/2014 - Caudal epidural steroid injection Hernia, ventral 05/14/2014 - Benign adipose tissue and focal fibrous tissue with reactive fibroplasia consistent with hernia contents.Neg for malignancy. Allergies and Sensitivities: rosuvastatin(Cold symptoms/pneumonia) lisinopril(Sneeze) lisinopril(Cough) TraMADol Hydrochloride ER(headaches) Current Home Meds: (Last Updated 12/20 14:27) DULoxetine (DULoxetine 60 mg oral delayed release capsule) TAKE 1 BY MOUTH ONCE DAILY acetaminophen (acetaminophen 500 mg oral tablet) 500 mg PO 1 Refill(s), Take 1 Tablet by mouth every 6 hours as needed for Pain. albuterol (Albuterol (Eqv-Proventil HFA) 90 mcg/inh inhalation aerosol) 2 puff inhaled q6h amoxicillin-clavulanate (Augmentin 875 mg-125 mg oral tablet) 1 tab PO q12h betamethasone-clotrimazole topical (betamethasone-clotrimazole 0.05%-1% topical cream) 1 appl topical Daily external application to genital region for 1 week buPROPion (buPROPion 150 mg/24 hours (XL) oral tablet, extended release) 150 mg PO q24h buPROPion (buPROPion 300 mg/24 hours (XL) oral tablet, extended release) 300 mg PO Daily celecoxib (celecoxib 200 mg oral capsule) 60 each, 0 Refill(s), TAKE 1 CAPSULE BY MOUTH TWICE DAILY WITH FOOD Responsible Provider: CASEY SERRATO 11/04 12:25 esomeprazole (esomeprazole 40 mg oral delayed release capsule) 40 mg PO bid evolocumab (Repatha SureClick 140 mg/mL subcutaneous solution) 140 mg subQ x4durst famotidine (famotidine 20 mg oral tablet) 20 mg PO qhs gabapentin (gabapentin 100 mg oral capsule) 200 mg PO Daily gabapentin (Neurontin 100 mg oral capsule) 100 mg PO tid After 3 days then take 2 100mg capsules 3 times a day for 3 days then begin 300mgRx gabapentin (Neurontin 300 mg oral capsule) 300 mg PO tid hydrocortisone topical (Procto-Med HC 2.5% topical cream) 28 g, 0 Refill(s) Responsible Provider: DIANN JIN 11/04 12:25 lidocaine topical (lidocaine topical 5% patch) 1 patch topical Daily PRN: pain - moderate (4-6) remove patches after 12 hours losartan (losartan 25 mg oral tablet) 25 mg PO bid mirabegron (Myrbetriq 25 mg oral tablet, extended release) 25 mg PO Daily mupirocin topical (mupirocin 2% topical ointment) 1 appl topical tid ondansetron (ondansetron 4 mg oral tablet, disintegrating) 30 each, 0 Refill(s), DISSOLVE 1 TABLET IN MOUTH EVERY 6 HOURS NEEDED FOR NAUSEA AND VOMITING Responsible Provider: BRIAN GROVER 11/04 12:25 Initial Wt: 12/20 82.1 kg 181 lb Principal Diagnosis Status post right total knee replacement cemented Discharge Data Allergies Allergy/AdvReac Type Severity Reaction Status Date / Time lisinopril AdvReac Intermediate Cold-like Verified 02/12/25 07:06 symptoms, sneezing [id number] Reductase AdvReac Intermediate Cold-like Verified 02/12/25 07:06 Inhibitor symptoms "which lead to pneumonia" tramadol AdvReac Mild Headaches Verified 02/12/25 07:06 Vaccinations None Consultations None Procedures Performed Operation Date: 02/12/25 08:50 <No data on this case meets the specified criteria> Cemented right total knee replacement Ordered Studies 02/12/25 05:00 US - OR guided needle placemen Routine Hospital Course (1) Status post right knee replacement: Total Time Total Time Spent Total Time Spent (In Minutes): 10 Discharge Plan Discharge Items Patient Disposition: Home - Home Health Services Reason For Visit: Right Knee Osteoarthritis Discharge Diagnosis: Right knee s/p total knee replacement Condition on Discharge: Good Activity: Per Instructions section Lifting: Wait until after follow-up appointment Bathing: Keep incision dry Exercise/Sports: Wait until after follow-up appointment Driving/Machine Use: No driving until cleared by Dr. Pereira Weightbearing: Full weightbearing Non-emergency contact: Surgeon Call non-emergency contact if: you have any medication questions, your pain is not controlled, your temperature is above 101, your wound has increased redness, your wound has increased drainage and your wound pain has increased Follow-up/Referrals: Quinn Nance PA-C [Physician Group Tester] - 02/27/25 Charanjit Abraham MD [Primary Care Provider] - Diet: Regular Addtl Attending Provider Instructions: New Medicine: * You will likely be taking one or more of these medications: 1. Percocet - Take, as directed, when you need it, every four to six hours to control your pain. 2. Iron Sulfate - Take 1x each day for the month after surgery to help you replace the blood lost during surgery. 3. Eliquis - Thins your blood to lessen the chance of forming a blood clot * The most common side effects of pain medicine and iron are nausea and constipation. If nausea or constipation is too much of a problem or if you have any questions about your new medicines or doses, call [facility] at . We will try to help you manage these issues. "VERY IMPORTANT TO READ AND REVIEW" Blood Clots and Blood Thinning Medicine: * You are given Eliquis during the immediate post-operative period to lessen the risk of blood clots forming in your legs and/or lungs. It is usually given for six weeks after surgery. Pain: * The immediate post-operative period after knee replacement surgery is often quite painful. * You are given a prescription for pain medicine. You should take it, as directed, when you need it, especially before physical therapy and before going to bed. Pain that interferes with sleep is very common and can last several months. * You will likely need pain medicine for the first four to six weeks. It will not stop all of the pain. The pain will lessen and as you feel better, you may change to milder pain medicine such as Tylenol. * The most common side effects of pain medicine are nausea and constipation, so don't take more than you need. Physical Therapy: * You will have physical therapy two or three times each week for four to six weeks after your surgery in order to regain your knee range of motion and to retrain your knee to work properly. * It is just as important to make sure you are getting your knee perfectly straight as it is to regain your knee bend. * Taking a pain pill an hour before therapy can help you have a more productive and comfortable therapy session if needed. Home Exercise: * You were shown a series of exercises (heel props, heel slides, etc.) in the hospital. Do these exercises three to four times each day including the exercises you were shown in physical therapy. Walking: * Get up and walk several times each day. For the first four weeks, try not to stand or walk for more than one hour at a time. If you do stand or walk for more than one hour, you will not hurt anything, but your knee and leg will likely swell. * As you feel comfortable, you may change from the walker or crutches to a cane and then to independent walking. SELF CARE INSTRUCTIONS AFTER TOTAL KNEE REPLACEMENT A. You may need to continue a physical therapy program after discharge from the hospital. There are several options available to you. Your doctor will assist you in selecting the best one for you. 1. An out-patient facility 2 to 3 times a week for therapy or home therapy. 2. Continue working on all exercises taught to you in the hospital. Your goals should be to increase bending of your knee to 90 degrees and beyond and to fully straighten your knee. B. You may progress at your own pace from walking with a walker or crutches to a cane; then to no assistive devices. C. Make walking a part of your daily routine. Be up as much as comfortable with rest periods throughout the day. Rest with leg elevation is very important. Use the ice wrap frequently for the first 3-4 weeks. D. There are no restrictions on activities. You may ride in a car, shop, participate in sales coach and all social activities. E. Wear the long elastic stockings (KATLYN hose) 20 hours a day for six weeks after surgery. They can be removed several times a day for laundering and for a shower. F. Do not place a pillow behind your knee when resting. A pillow at your ankle is okay. G. You may return to previous diet. VERY IMPORTANT TO READ AND REVIEW A. Take Eliquis (blood thinning medication) as directed by your doctor. B. There are a few signs you need to watch for after you are home. Call [facility] if you notice any of the followin. Increased severe knee pain. Some pain is expected especially when you exercise. 2. Increased swelling in your leg or knee; pain or swelling of the calf muscle in either lower leg. 3. Any fluid drainage from the incision. 4. Shortness of breath or chest pain. C. Please call [facility] at if you have any concerns or questions about your operation or recovery. The doctor or his nurse will return your call promptly. D. You must take antibiotics before dental work, bladder, bowel or other surgery. Call the office to obtain a prescription at least 2 days prior to your appointment. * CALL IF INCREASED PAIN, REDNESS, DRAINAGE OR FEVER GREATER THAT 101. * Sutures should be removed 12-14 days after surgery unless you are on chronic steroids, then it will be 14-18 days after surgery. Call your doctor if: * Temperature above 101 degrees F. * Pain not relieved by pain medicine ordered. * Increased drainage or redness from incision. * Notify your doctor with any questions or concerns. Start your Eliquis tonight. Take it 2x day x 6 weeks to prevent clots use your knee immobilizer when out of bed today and tomorrow. It can be discontinued entirely on Monday morning. use your walker for ambulation ice and elevate the knee frequently to reduce pain/swelling follow up in the office in 2 weeks as scheduled keep the dressings intact through the weekend. They can be changed on Monday by Home health if needed for soiling Pending Studies at Discharge: Yes Studies:: bone pathology Stand-Alone Forms: My [facility], Smoking Cessation Medications and DC Order Prescriptions: New Eliquis 2.5 mg tablet 2.5 mg PO BID Qty: 80 0RF oxycodone-acetaminophen [Percocet] 5-325 mg tablet 2 tab PO Q6H PRN (Reason: pain) Qty: 18 0RF Rx Instructions: initial script max of 6 per day No Action fluticasone propion-salmeterol [Advair Diskus] 500-50 mcg/dose Blister With Device 1 puff Inhalation BID 30 Days Qty: 1 famotidine [Pepcid] 40 mg tablet 40 mg PO HS losartan 25 mg tablet 25 mg PO QAM polyethylene glycol 3350 [Miralax] 17 gram Powder In Packet 17 g PO QPM acetaminophen [Tylenol Extra Strength] 500 mg Tablet 1,000 mg PO UD PRN (Reason: Pain) albuterol sulfate [Ventolin HFA] 90 mcg/actuation Hfa Aerosol Inhaler 2 puff INHALATION QID PRN (Reason: Shortness Of Breath Or Wheezing) Align (B.infantis) 4 mg Capsule 4 mg PO QPM Metamucil 3.4 gram/5.4 gram Powder 4 tbsp PO HS duloxetine [Cymbalta] 60 mg Capsule,Delayed Release(Dr/Ec) 60 mg PO QAM hydrocortisone [Proctosol HC] 2.5 % Cream With Perineal Applicator 1 applic IA UD PRN (Reason: Hemorrhoids) erythromycin with ethanol 2 % Solution 1 applic TOPICAL UD PRN (Reason: scalp) ondansetron 4 mg Tablet,Disintegrating 4 mg PO QAM cholecalciferol (vitamin D3) [Vitamin D3] 25 mcg (1,000 unit) Tablet 25 mcg PO QAM esomeprazole magnesium [Nexium] 40 mg Capsule,Delayed Release(Dr/Ec) 40 mg PO QAM Arctic Relief 0.2-3.5 % Gel 1 applic TOPICAL BID PRN (Reason: Pain) Rx Instructions: rub in gently and completely Clare Bergamot 500 mg Capsule 500 mg PO BID Keto Gummy 2 tab PO DAILY gabapentin [Neurontin] 300 mg Capsule 300 mg PO BID bupropion HCl [Wellbutrin XL] 300 mg tablet extended release 24 hr 300 mg PO QAM Rx Instructions: Take with 150mg for total of 450mg bupropion HCl [Wellbutrin XL] 150 mg tablet extended release 24 hr 150 mg PO QAM Rx Instructions: Take with 300mg for total of 450mg omega [id number] oil [Fish Oil] 1,200 (144-216) mg Capsule 1 cap PO DAILY Menopause Supplement 400 mcg Tablet 3 tab PO DAILY Rx Instructions: 2 tabs QAM - 3 Tabs QPM Admission Data Admit Date/Time: 02/12/25 11:29 Attending Provider: Reginaldo Pereira Admit Provider: Reginaldo Pereira Primary Care Provider: Charanjit Abraham
--- NOTE | 2025-02-12 11:21 | Operative Report ---
Post Operative Report Pre & Post Diagnosis Operation Date: 02/12/25 08:50 Pre-Op Diagnosis: Right Knee Degenerative Joint Disease Post-Op Diagnosis: Right Knee Degenerative Joint Disease I identified the patient and participated in the time-out.: Yes Procedure Operation Date: 02/12/25 08:50 Actual Procedures p Right Total Knee Arthroplasty(Right) - Reginaldo Pereira MD Surgeon NERI Pereira MD [facility] PAC no resident or fellow available Estimated Blood Loss 100 Findings Consistent with Post-Op Diagnosis see operative report Specimens see operative report Drains none Complications none Disposition Accompanied Patient To Recovery: Yes Indications This 59 year old female presented to the office of complaints of persisting right knee pain. She had tried conservative care measures without improvement. She elected to proceed with surgical invention after being educated about potential risks and outcomes. Preoperative imaging was obtained. Description of Procedure The patient was administered a regional block and then taken to the operating room where she was given general anesthesia. She was prepped and draped in the usual sterile fashion. Please see Dr. Pereira's operative report for specifics of the procedure. I was present for the entire case from initial patient positioning through final wound closure. Assistance was provided in tissue retraction, hemostasis, trial implant placement, final implant placement, and final wound closure. The patient was taken to the recovery room in satisf actory condition. I attest to the content of the Intraoperative Record and any orders documented therein. Any exceptions are noted below.
[2025-02-12] MEDS ORDERED: PROMETHAZINE HCL 6.25 MG in SODIUM CHLORIDE 0.9% 50 ML IV PRN (11:31)
[2025-02-12] MEDS ORDERED: ONDANSETRON INJ 2 MG/ML 2 ML VIAL IV PRN ×2 (11:31→13:32)
[2025-02-12] MEDS ORDERED: FLUMAZENIL 0.1 MG/1 ML 10 ML VIAL IV PRN (11:31)
[2025-02-12] MEDS ORDERED: NALOXONE HCL 0.4 MG/1 ML VIAL/CARP IV PRN ×2 (11:31→13:32)
[2025-02-12] MEDS ORDERED: ATROPINE SULFATE 0.1 MG/ML 10ML SYR IV PRN (11:31)
--- NOTE | 2025-02-12 11:34 | XRay Report ---
XR knee RT 1 or 2V routine CLINICAL HISTORY: Status post cemented right total knee replacement COMPARISON: Right knee radiograph October 29, 2024. FINDINGS: Alignment of the total right knee arthroplasty is anatomic. There is no periprosthetic fra cture or unexpected radiopaque foreign body. There are skin mandie. IMPRESSION: Expected findings following total right knee arthroplasty. ACT 112: Negative or not required by law. Electronically signed by: Ranjan Mcmahan M.D. 02/12/2025 11:33 AM
--- NOTE | 2025-02-12 11:42 | Orthopedic Progress Note ---
Date of Service February 12, 2025 Orthopedic Progress Note Postop check status post right cemented total knee replacement. Patient is doing well denies chest pain shortness of breath fever chills nausea or headache. Vital signs are stable she is afebrile. Neurovascular check from sciatic nerve is normal. Wound dressing clean dry and intact. Postop x-rays look excellent. Son was contacted. He understands she is in the hospital. Pick her up tomorrow after discharge. Continue care pathway for total knee replacement with home services postop. Initiate anticoagulation tomorrow.
[2025-02-12] MEDS: HYDROmorphone INJ 2 MG/ML SYR/VIAL IV PRN (12:30)
--- NOTE | 2025-02-12 13:13 | Anesthesiology Progress Note ---
Date of Service February 12, 2025 Anesthesia Post Procedure Vital Signs Vital Signs: Temp Pulse Pulse Resp BP Pulse Ox O2 Del Method 02/12/25 13:00 75 15 108/59 L 100 Nasal Cannula 02/12/25 12:45 36.6 C 74 21 114/69 96 Nasal Cannula 02/12/25 12:35 77 16 113/63 96 Nasal Cannula 02/12/25 12:25 75 17 115/69 98 Nasal Cannula 02/12/25 12:15 76 15 112/68 94 Room Air 02/12/25 12:05 74 15 111/63 100 Oxymask 02/12/25 11:55 77 15 109/65 100 Oxymask 02/12/25 11:45 77 15 110/63 95 Oxymask 02/12/25 11:35 83 17 118/67 98 Oxymask 02/12/25 11:25 86 21 117/62 100 Oxymask 02/12/25 11:18 36.2 C L 79 12 97/53 L 99 Oxymask 02/12/25 07:12 36.7 C 80 18 135/77 96 Room Air O2 Flow Rate 02/12/25 13:00 2 02/12/25 12:45 2 02/12/25 12:35 2 02/12/25 12:25 2 02/12/25 12:15 02/12/25 12:05 4 02/12/25 11:55 4 02/12/25 11:45 4 02/12/25 11:35 4 02/12/25 11:25 6 02/12/25 11:18 8 02/12/25 07:12 Pain Intensity Generalized: Pain Intensity: 9 Right Knee: Pain Intensity: 4 Transfer of Care Handoff Completed per policy Notes Mental Status: alert / awake / arousable Patient Amnestic to Procedure: Yes Nausea / Vomiting: adequately controlled Pain: adequately controlled Airway Patency, RR, SpO2: stable & adequate BP & HR: stable & adequate Hydration State: stable & adequate Anesthetic Complications: no major complications apparent
[2025-02-12] MEDS ORDERED: ALUMINUM/MAGNESIUM SUSP 30 ML UDC PO PRN (13:32)
[2025-02-12] MEDS ORDERED: HYDROmorphone INJ 0.5 MG/0.5 ML SYR IV PRN (13:32)
[2025-02-12] MEDS ORDERED: METOCLOPRAMIDE HCL INJ 5 MG/ML 2 ML VIAL IV PRN (13:32)
[2025-02-12] MEDS ORDERED: diphenhydrAMINE 50 MG/ML VIAL IV PRN (13:32)
[2025-02-12] MEDS ORDERED: MAGNESIUM HYDROXIDE SUSP 30 ML UDC PO PRN (13:32)
[2025-02-12] MEDS: ACETAMINOPHEN 500 MG TAB PO SCH (15:22)
[2025-02-12] MEDS: KETOROLAC TROMETHAMINE 15 MG/ML VIAL IV SCH (15:22)
[2025-02-12] MEDS: SODIUM CHLORIDE 0.9% 1,000 ML IV SCH (15:23)
[2025-02-12] MEDS: FERROUS GLUCONATE 324 MG TAB PO SCH (18:12)
[2025-02-12] MEDS: ASCORBIC ACID 500 MG TAB PO SCH (18:12)
[2025-02-12] MEDS: PSYLLIUM HUSK 4GM PACKET PO SCH (21:46)
[2025-02-12] MEDS: POLYETHYLENE (MIRALAX) 17 GM PACK PO SCH (21:46)
[2025-02-12] MEDS: FAMOTIDINE 40 MG TABLET PO SCH (21:47)
[2025-02-12] MEDS: DOCUSATE SODIUM 100 MG CAP PO SCH (21:47)
[2025-02-12] MEDS: GABAPENTIN 300 MG CAP PO SCH (21:47)
[2025-02-12] MEDS: SENNA 8.6 MG TAB PO SCH (21:47)
[2025-02-12] MEDS: ALBUTEROL HFA 8 GM INHALER INH PRN (23:31)
--- NOTE | 2025-02-13 06:40 | Orthopedic Progress Note ---
Date of Service February 13, 2025 Assessment & Plan Admission and Anticipated Discharge Date Admission Date: February 12, 2025 Orthopedic Progress Note Postop day #1 status post right total knee replacement. Patient is doing well. She denies chest pain shortness of breath fever chills nausea vomiting headache. She has minimal discomfort. 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 She states she is doing her exercises. Vital signs are stable she is afebrile. Neurovascular check femoral sciatic nerve is normal. A.m. labs are pending. Wound dressing clean dry and intact. Assessment overall doing well plan is for discharge home today after PT OT and dressing change by PA. Initiate anticoagulation today. Follow-up in 2 weeks.
[2025-02-13 07:14] VITALS: BP 113/68; PULSE 79; RESP 17; TEMP 98.1; O2SAT 96
[2025-02-13 07:40] LABS: Hematocrit (blood only) 30.1 % (37.0-47.0); Hemoglobin 10.1 g/dl (12.0-16.0); Mean Corpuscular Hemoglobin 29.1 pg (25.0-34.0); Mean Corpuscular Volume 86.7 fL (80.0-100.0); Platelet Count 230 K/uL (130-400); RDW Standard Deviation 43.1 fL (36.4-46.3); Red Blood Count 3.47 M/uL (4.20-5.40); White Blood Count 8.32 K/ul (4.8-10.8)
[2025-02-13] MEDS: dexAMETHasone 10 MG in SYRINGE 0 ML IV SCH (07:45)
[2025-02-13] MEDS: APIXABAN 2.5 MG TAB PO SCH (07:45)
[2025-02-13] MEDS: LOSARTAN POTASSIUM 25 MG TAB PO SCH (07:48)
[2025-02-13] MEDS: FLUTICASONE/VILANTEROL 200/25MCG 14 PUFFS/INHALER INH SCH (07:48)
[2025-02-13] MEDS: MULTIVITAMIN TAB PO SCH (07:49)
[2025-02-13 08:01] LABS: Anion Gap 5.0 (3-11); Blood Urea Nitrogen 14.0 mg/dl (6-23); Calcium 8.8 mg/dl (8.6-10.3); Carbon Dioxide 28.0 mmol/L (21-32); Chloride 104.0 mmol/L (98-107); Creatinine Clr Calc Pharmacy 72.9 ml/min; Glucose 119.0 mg/dl (70-99(Fasting)); Potassium 4.1 mmol/L (3.5-5.1); Sodium 137.0 mmol/L (136-145)
--- NOTE | 2025-02-13 08:42 | Orthopedic Progress Note ---
Date of Service February 13, 2025 Assessment & Plan (1) Status post right knee replacement: Plan: POD1 s/p total knee arthroplasty WBAT with walker PT/OT Frequently ice and elevate with blankets stacked under ankle DVT prophylaxis: Eliquis for DVT prevention, TEDS x 6 weeks Percocet for pain control as needed Dressing: changed today with gauze, kerlix, abd, another roll of kerlix and jeannette placed over top Discharge home with home health Follow up as scheduled with [facility] in 2 weeks Admission and Anticipated Discharge Date Admission Date: February 12, 2025 Subjective Pt was seen and examined bedside. POD #1 s/p RTKA. Pt was admitted last night for observation. No major events over night. Vitals are stable. Labs unremarkable. X-rays show normal post operative changed. Pt reports they are doing well and pain is controlled. They are tolerating PO intake and voiding adequate amounts. Has not yet worked with PT/OT. Pt denies F/C, N/V/D, SOB, CP. Pt deemed medically stable and ready for discharge pending PT eval. Physical Exam Physical Exam: General: Pt laying in hospital bed AA&O, in NAD, calm and cooperative during exam Lower Extremity: Dressing in tact with some minor old, bloody drainage Over the distal part of her incision. Incisions clean, dry and with scant blood at middle part of incision. No surrounding erythema, warmth or purulent drainage. Pt has full ROM of ankle and all 5 digits. Pt has 5/5 strength with resisted DF/PF. SLR in tact. Calf supple and non tender. NVI with sensation to light touch distally and good distal pulses present. ROM: -5 to 60 degrees range of motion active and painfree. Results & Data Vital Signs (Past 12 Hours) Vital Signs Temp Pulse Resp BP Pulse Ox O2 Del Method 02/13/25 07:11 36.7 C 79 17 113/68 96 Room Air 02/13/25 02:56 36.6 C 86 18 144/76 H 94 Room Air 02/12/25 23:32 90 18 93 Room Air 02/12/25 23:00 36.4 C L 81 16 105/67 96 Room Air
== END 2025-02-13 11:14 | disposition home health service (06) ==
LOC: PACUINP 06:33 → ASU 06:33 → 3W 14:08